=== PATIENT | female | born 1985 | race Caucasian/White ===

== ENCOUNTER 2018-12-02 11:38 | Emergency (ER) | payer SELFPAY ==
[~2018-12-02] VITALS: Ht 170.2 cm; Wt 54.5 kg
[2018-12-02] MEDS ORDERED: LORazepam 1 MG TABLET PO ONE (12:00)
[2018-12-02] MEDS ORDERED: ACETAMINOPHEN 500 MG TABLET PO ONE (12:00)
[2018-12-02 12:32] VITALS: BP 169/98
== END 2018-12-02 13:09 | disposition home or self-care (01) ==
LOC: EMS 11:39
DX: E86.0 Dehydration (principal); R51 Headache; F15.10 Other stimulant abuse, uncomplicated; F12.90 Cannabis use, unspecified, uncomplicated; F17.210 Nicotine dependence, cigarettes, uncomplicated
CPT/HCPCS: 99406

== ENCOUNTER 2018-12-02 21:06 | Emergency (ER) | payer SELFPAY ==
[~2018-12-02] VITALS: Ht 167.6 cm; Wt 70.0 kg
[2018-12-02 22:12] LABS: BASOPHILS % (AUTO) 0.3 % (0.0-2.0); EOSINOPHILS % (AUTO) 0.1 % (1.0-6.0); HEMOGLOBIN 11.6 g/dL (12.0-16.0); LYMPHOCYTES # (AUTO) 2.4 K/uL (1.0-4.8); LYMPHOCYTES % (AUTO) 23.5 % (22.0-44.0); MEAN CORPUSCULAR HEMOGLOBIN 27.4 pg (26.0-34.0); MEAN CORPUSCULAR HGB CONC 32.2 G/dL (31.0-37.0); MEAN CORPUSCULAR VOLUME 85 fL (80-100); MONOCYTES # (AUTO) 0.8 K/uL (0.1-1.0); MONOCYTES % (AUTO) 7.5 % (2.0-9.0); NEUTROPHILS % (AUTO) 68.6 % (40.0-70.0); PLATELET COUNT (AUTO) 397 K/uL (150-450); RED BLOOD CELL COUNT(AUTO) 4.24 MIL/uL (4.00-5.20); RED CELL DISTRIBUTION WIDTH 15.4 % (11.5-14.5)
[2018-12-02 22:25] LABS: ANION GAP 5 mmol/L (8-16); CALCIUM, TOTAL 8.9 mg/dL (8.8-10.5); CARBON DIOXIDE 29 mmol/L (22-29); CHLORIDE 102 mmol/L (98-107); CREATININE 0.69 mg/dL (0.60-1.30); GLOMERULAR FILTR. RATE CALC > 60 mL/min (>60); GLUCOSE,RANDOM 90 mg/dL (70-110); POTASSIUM 3.3 mmol/L (3.5-5.1); SODIUM SERUM 136 mmol/L (136-145); UREA NITROGEN, BLOOD 11 mg/dL (7-18)
[2018-12-02 22:36] LABS: ALANINE AMINOTRANSFERASE 131 U/L (12-78); ALBUMIN 3.7 g/dL (3.4-5.0); ALKALINE PHOSPHATASE 141 U/L (46-116); ASPARTATE AMINOTRANSFERASE 53 U/L (15-37); BILIRUBIN,TOTAL 0.3 mg/dL (0.1-1.0); HCG,QUANTITATIVE < 1 mIU/mL (0-6); LIPASE 397 U/L (73-393); TOTAL PROTEIN, SERUM 8.2 g/dL (6.4-8.2)
[2018-12-02 23:18] LABS: AMPHET/METH SCREEN,URINE POSITIVE (NEGATIVE); BARBITURATE SCREEN, URINE NEGATIVE (NEGATIVE); BENZODIAZEPINES SCREEN,URINE NEGATIVE (NEGATIVE); CANNABINOID SCREEN,URINE NEGATIVE (NEGATIVE); COCAINE SCREEN,URINE NEGATIVE (NEGATIVE); METHADONE SCREEN, URINE NEGATIVE (NEGATIVE); OPIATE SCREEN,URINE NEGATIVE (NEGATIVE)
[2018-12-02 23:20] LABS: PHENCYCLIDINE SCREEN,URINE NEGATIVE (NEGATIVE)
[2018-12-03] MEDS ORDERED: POTASSIUM CHLORIDE 20 MEQ ER TABLET PO ONE (00:45)
[2018-12-03 01:10] VITALS: BP 138/92
== END 2018-12-03 01:57 | disposition home or self-care (01) ==
LOC: EMS 21:07
DX: R10.32 Left lower quadrant pain (principal); R51 Headache; F15.10 Other stimulant abuse, uncomplicated; F17.210 Nicotine dependence, cigarettes, uncomplicated; F12.90 Cannabis use, unspecified, uncomplicated
CPT/HCPCS: 36415; 80053; 80307; 83690; 84702; 85025; 99283; G0480

== ENCOUNTER 2018-12-30 21:31 | Inpatient (IN) | payer MEDICARE, MEDICAID ==
[~2018-12-30] VITALS: Ht 165.1 cm; Wt 76.0 kg
[2018-12-30] MEDS ORDERED: CefTRIAXone SODIUM 1 GM/VIAL IM ONE (23:45)
[2018-12-30] MEDS ORDERED: MetroNIDAZOLE 500 MG TABLET PO ONE (23:45)
[2018-12-30] MEDS ORDERED: AZITHROMYCIN 250 MG TABLET PO ONE (23:45)
[2018-12-30 23:56] LABS: BASOPHILS % (AUTO) 0.5 % (0.0-2.0); EOSINOPHILS % (AUTO) 2.3 % (1.0-6.0); HEMATOCRIT 35.7 % (36-46); HEMOGLOBIN 11.8 g/dL (12.0-16.0); LYMPHOCYTES # (AUTO) 2.5 K/uL (1.0-4.8); LYMPHOCYTES % (AUTO) 34.5 % (22.0-44.0); MEAN CORPUSCULAR HEMOGLOBIN 27.8 pg (26.0-34.0); MEAN CORPUSCULAR HGB CONC 32.9 G/dL (31.0-37.0); MEAN CORPUSCULAR VOLUME 85 fL (80-100); MONOCYTES # (AUTO) 0.8 K/uL (0.1-1.0); MONOCYTES % (AUTO) 10.7 % (2.0-9.0); NEUTROPHILS # (AUTO) 3.8 K/uL (1.8-7.7); PLATELET COUNT (AUTO) 377 K/uL (150-450); RED BLOOD CELL COUNT(AUTO) 4.23 MIL/uL (4.00-5.20); RED CELL DISTRIBUTION WIDTH 14.9 % (11.5-14.5)
[2018-12-31 00:15] LABS: ANION GAP 7 mmol/L (8-16); CALCIUM, TOTAL 8.5 mg/dL (8.8-10.5); CARBON DIOXIDE 30 mmol/L (22-29); CHLORIDE 101 mmol/L (98-107); CREATININE 0.65 mg/dL (0.60-1.30); GLOMERULAR FILTR. RATE CALC > 60 mL/min (>60); GLUCOSE,RANDOM 98 mg/dL (70-110); POTASSIUM 3.5 mmol/L (3.5-5.1); SODIUM SERUM 138 mmol/L (136-145); UREA NITROGEN, BLOOD 14 mg/dL (7-18)
[2018-12-31 00:26] LABS: ALANINE AMINOTRANSFERASE 171 U/L (12-78); ALBUMIN 3.3 g/dL (3.4-5.0); ALKALINE PHOSPHATASE 190 U/L (46-116); ASPARTATE AMINOTRANSFERASE 70 U/L (15-37); BILIRUBIN,TOTAL 0.3 mg/dL (0.1-1.0); HCG,QUANTITATIVE < 1 mIU/mL (0-6); TOTAL PROTEIN, SERUM 7.4 g/dL (6.4-8.2)
[2018-12-31 00:27] LABS: APPEARANCE,URINE CLOUDY (CLEAR); BILIRUBIN,URINE NEGATIVE (NEGATIVE); GLUCOSE, URINE (UA) NEGATIVE (NEGATIVE); KETONES,URINE TRACE mg/dL (NEGATIVE); LEUKOCYTE ESTERASE ,URINE MODERATE (NEGATIVE); NITRATE,URINE NEGATIVE (NEGATIVE); OCCULT BLOOD,URINE LARGE (NEGATIVE); PROTEIN,URINE POS 1+ (NEGATIVE)
[2018-12-31 00:33] LABS: AMPHET/METH SCREEN,URINE POSITIVE (NEGATIVE); BARBITURATE SCREEN, URINE NEGATIVE (NEGATIVE); BENZODIAZEPINES SCREEN,URINE NEGATIVE (NEGATIVE); CANNABINOID SCREEN,URINE NEGATIVE (NEGATIVE); COCAINE SCREEN,URINE NEGATIVE (NEGATIVE); METHADONE SCREEN, URINE NEGATIVE (NEGATIVE); OPIATE SCREEN,URINE NEGATIVE (NEGATIVE); PHENCYCLIDINE SCREEN,URINE NEGATIVE (NEGATIVE)
[2018-12-31 00:36] LABS: RBC,URINE >100 /HPF (0-2)
[2018-12-31 00:37] LABS: SQUAMOUS EPITHELIAL CELL,UR Few /LPF (None Seen)
[2018-12-31 00:38] LABS: BACTERIA,URINE Few /HPF (None Seen); CALCIUM OXALATE CRYSTALS,UR Few /LPF (None Seen)
[2018-12-31 08:00] VITALS: BP 148/101
[2018-12-31 09:30] VITALS: BP 144/75
[2018-12-31] MEDS: ESCITALOPRAM OXALATE 10 MG TABLET PO SCH (11:35)
[2018-12-31] MEDS ORDERED: MAGNESIUM HYDROXIDE SUSPENSION 30 ML UDCUP PO PRN (13:45)
[2018-12-31] MEDS ORDERED: ACETAMINOPHEN 325 MG TABLET PO PRN (13:45)
[2018-12-31] MEDS ORDERED: IBUPROFEN 400 MG TABLET PO PRN (13:45)
[2018-12-31] MEDS ORDERED: ALBUTEROL SULFATE HFA 90 MCG/PUFF 8 GM INHALER IH PRN (13:45)
[2018-12-31] MEDS ORDERED: MAG HYDROX/AL HYDROX/SIMETH ES 30 ML SUSPENSION UDCUP PO PRN (13:45)
[2018-12-31] MEDS ORDERED: ONDANSETRON HCL 4 MG TABLET PO PRN (13:45)
[2018-12-31] MEDS ORDERED: GuaiFENesin/D-METHORPHAN [SUGAR-FREE] 200-20MG/10 ML SYRUP UDCUP PO PRN (13:45)
[2018-12-31] MEDS ORDERED: CloNIDine HCL 0.1 MG TABLET PO PRN (13:45)
[2018-12-31] MEDS ORDERED: LOPERAMIDE HCL 2 MG CAPSULE PO PRN (13:45)
[2018-12-31] MEDS ORDERED: PETROLATUM,WHITE 28 GM JELLY TP PRN (13:45)
[2018-12-31] MEDS ORDERED: DOCUSATE SODIUM 100 MG CAPSULE PO PRN (13:45)
[2018-12-31 17:43] VITALS: BP 140/86
[2019-01-01 05:44] VITALS: BP 145/94
[2019-01-01] MEDS: ESCITALOPRAM OXALATE 10 MG TABLET PO SCH (08:06)
[2019-01-01 08:10] VITALS: BP_SYST 135; BP_SYST 157; BP_DIAS 157; BP_DIAS 86
[2019-01-01 16:00] VITALS: BP 154/98
[2019-01-01] MEDS: LORazepam 1 MG TABLET PO PRN (16:03)
[2019-01-01] MEDS: HALOPERIDOL 5 MG TABLET PO PRN (16:03)
[2019-01-01] MEDS: QUEtiapine FUMARATE 200 MG TABLET PO SCH (21:26)
[2019-01-02] MEDS: ESCITALOPRAM OXALATE 10 MG TABLET PO SCH (08:07)
[2019-01-02 09:50] VITALS: BP 149/92
[2019-01-02] MEDS: DOXYCYCLINE HYCLATE 100 MG CAPSULE PO SCH (16:31)
[2019-01-02 17:02] VITALS: BP 145/102
[2019-01-02] MEDS: QUEtiapine FUMARATE 200 MG TABLET PO SCH (20:14)
[2019-01-03 06:50] VITALS: BP 146/106
[2019-01-03] MEDS: DOXYCYCLINE HYCLATE 100 MG CAPSULE PO SCH ×2 (07:50→16:28)
[2019-01-03] MEDS: LORazepam 1 MG TABLET PO PRN (07:50)
[2019-01-03] MEDS: ESCITALOPRAM OXALATE 10 MG TABLET PO SCH (07:51)
[2019-01-03 08:30] VITALS: BP 166/87
[2019-01-03 16:00] VITALS: BP 149/97
[2019-01-03] MEDS: QUEtiapine FUMARATE 200 MG TABLET PO SCH (20:01)
[2019-01-04] MEDS: DOXYCYCLINE HYCLATE 100 MG CAPSULE PO SCH ×2 (07:47→16:13)
[2019-01-04] MEDS: ESCITALOPRAM OXALATE 10 MG TABLET PO SCH (07:47)
[2019-01-04 08:15] VITALS: BP 139/85
[2019-01-04 18:19] VITALS: BP 143/97
[2019-01-04] MEDS: ZOLPIDEM TARTRATE 10 MG TABLET PO PRN (19:16)
[2019-01-04] MEDS: QUEtiapine FUMARATE 200 MG TABLET PO SCH (20:52)
[2019-01-05 06:37] VITALS: BP 136/88
[2019-01-05] MEDS: ESCITALOPRAM OXALATE 10 MG TABLET PO SCH (08:35)
[2019-01-05] MEDS: DOXYCYCLINE HYCLATE 100 MG CAPSULE PO SCH ×2 (08:35→16:50)
[2019-01-05] MEDS: LORazepam 1 MG TABLET PO PRN (08:35)
[2019-01-05 09:52] VITALS: BP 116/87
[2019-01-05 17:00] VITALS: BP 147/94
[2019-01-05] MEDS ORDERED: INFLUENZA VIRUS VACCINE QVS 2019-20 (3YR+)/PF 60 MCG/0.5 ML SYRINGE IM ONE (19:15)
[2019-01-05] MEDS: QUEtiapine FUMARATE 200 MG TABLET PO SCH (20:45)
[2019-01-05] MEDS: ZOLPIDEM TARTRATE 10 MG TABLET PO PRN (20:45)
[2019-01-06] MEDS: DOXYCYCLINE HYCLATE 100 MG CAPSULE PO SCH ×2 (07:59→16:01)
[2019-01-06] MEDS: ESCITALOPRAM OXALATE 10 MG TABLET PO SCH (08:00)
[2019-01-06 11:22] VITALS: BP 130/76
[2019-01-06] MEDS: LORazepam 1 MG TABLET PO PRN (16:27)
[2019-01-06] MEDS: NICOTINE 14 MG/24 HOUR PATCH TD PRN (16:28)
[2019-01-06] MEDS: QUEtiapine FUMARATE 200 MG TABLET PO SCH (20:32)
[2019-01-06] MEDS: ZOLPIDEM TARTRATE 10 MG TABLET PO PRN (20:32)
[2019-01-06 20:45] VITALS: BP 138/74
[2019-01-07] MEDS: DOXYCYCLINE HYCLATE 100 MG CAPSULE PO SCH ×3 (07:44→16:31)
[2019-01-07] MEDS: ESCITALOPRAM OXALATE 10 MG TABLET PO SCH (07:45)
[2019-01-07 08:33] VITALS: BP 114/77
[2019-01-07] MEDS: LORazepam 1 MG TABLET PO PRN ×2 (12:21→16:31)
[2019-01-07] MEDS: HALOPERIDOL 5 MG TABLET PO PRN (15:45)
[2019-01-07] MEDS: NICOTINE 14 MG/24 HOUR PATCH TD PRN (17:11)
[2019-01-07 17:19] VITALS: BP 145/78
[2019-01-07] MEDS: QUEtiapine FUMARATE 200 MG TABLET PO SCH (20:14)
[2019-01-07] MEDS: ZOLPIDEM TARTRATE 10 MG TABLET PO PRN (20:14)
[2019-01-08 04:41] VITALS: BP 128/74
[2019-01-08 07:49] LABS: ALANINE AMINOTRANSFERASE 289 U/L (12-78); ALKALINE PHOSPHATASE 147 U/L (46-116); ANION GAP 7 mmol/L (8-16); ASPARTATE AMINOTRANSFERASE 143 U/L (15-37); BILIRUBIN,TOTAL 0.1 mg/dL (0.1-1.0); CALCIUM, TOTAL 8.5 mg/dL (8.8-10.5); CARBON DIOXIDE 27 mmol/L (22-29); CHLORIDE 104 mmol/L (98-107); CREATININE 0.65 mg/dL (0.60-1.30); GLOMERULAR FILTR. RATE CALC > 60 mL/min (>60); GLUCOSE,RANDOM 85 mg/dL (70-110); POTASSIUM 4.2 mmol/L (3.5-5.1); SODIUM SERUM 138 mmol/L (136-145); TOTAL PROTEIN, SERUM 6.7 g/dL (6.4-8.2); UREA NITROGEN, BLOOD 18 mg/dL (7-18)
[2019-01-08 08:00] VITALS: BP 127/92
[2019-01-08] MEDS: LORazepam 1 MG TABLET PO PRN (08:03)
[2019-01-08] MEDS: DOXYCYCLINE HYCLATE 100 MG CAPSULE PO SCH ×2 (08:03→16:37)
[2019-01-08] MEDS: HALOPERIDOL 5 MG TABLET PO PRN (08:03)
[2019-01-08] MEDS: ESCITALOPRAM OXALATE 10 MG TABLET PO SCH (08:04)
[2019-01-08] MEDS: NICOTINE 14 MG/24 HOUR PATCH TD PRN (10:15)
[2019-01-08 19:10] VITALS: BP 117/80
[2019-01-08] MEDS: QUEtiapine FUMARATE 200 MG TABLET PO SCH (20:08)
[2019-01-09] MEDS: ESCITALOPRAM OXALATE 10 MG TABLET PO SCH (08:37)
[2019-01-09] MEDS: HALOPERIDOL 5 MG TABLET PO PRN (09:57)
[2019-01-09] MEDS: NICOTINE 14 MG/24 HOUR PATCH TD PRN (10:17)
[2019-01-09] MEDS: LORazepam 1 MG TABLET PO PRN ×2 (11:55→17:56)
[2019-01-09 12:02] VITALS: BP 122/77
[2019-01-09 16:00] VITALS: BP 134/86
[2019-01-09 17:50] VITALS: BP 129/73
[2019-01-09] MEDS: QUEtiapine FUMARATE 200 MG TABLET PO SCH (20:19)
[2019-01-10] MEDS: ESCITALOPRAM OXALATE 10 MG TABLET PO SCH (08:00)
[2019-01-10] MEDS: LORazepam 1 MG TABLET PO PRN ×2 (08:02→15:04)
[2019-01-10 09:58] VITALS: BP 160/81
[2019-01-10] MEDS: HALOPERIDOL 5 MG TABLET PO PRN (11:46)
[2019-01-10] MEDS: QUEtiapine FUMARATE 200 MG TABLET PO SCH (19:48)
[2019-01-10 21:49] VITALS: BP 130/84
[2019-01-11] MEDS: ESCITALOPRAM OXALATE 10 MG TABLET PO SCH (07:50)
[2019-01-11 08:58] VITALS: BP 126/80
[2019-01-11] MEDS: LORazepam 1 MG TABLET PO PRN ×2 (10:20→15:00)
[2019-01-11] MEDS: NICOTINE 14 MG/24 HOUR PATCH TD PRN (10:21)
[2019-01-11] MEDS: HALOPERIDOL 5 MG TABLET PO PRN (13:08)
[2019-01-11 19:39] VITALS: BP 150/83
[2019-01-11] MEDS: QUEtiapine FUMARATE 200 MG TABLET PO SCH (20:05)
[2019-01-12] MEDS: ESCITALOPRAM OXALATE 10 MG TABLET PO SCH (07:48)
[2019-01-12] MEDS: LORazepam 1 MG TABLET PO PRN (08:34)
[2019-01-12 08:56] VITALS: BP 121/84
[2019-01-12] MEDS ORDERED: QUET200T29 PO (09:50)
[2019-01-12] MEDS ORDERED: ESCI10TA54 PO (09:50)
== END 2019-01-12 11:30 | disposition home or self-care (01) | DRG 885 ==
LOC: EMS 21:32 → 3EX 12-31 06:24
DX: F25.1 Schizoaffective disorder, depressive type (principal); R45.851 Suicidal ideations; D64.9 Anemia, unspecified; F10.10 Alcohol abuse, uncomplicated; F15.10 Other stimulant abuse, uncomplicated; R00.0 Tachycardia, unspecified; R03.0 Elevated blood-pressure reading, without diagnosis of hypertension; R74.0 Nonspecific elevation of levels of transaminase and lactic acid dehydrogenase [LDH]; R30.0 Dysuria; G44.209 Tension-type headache, unspecified, not intractable; A74.9 Chlamydial infection, unspecified; R31.9 Hematuria, unspecified; F17.210 Nicotine dependence, cigarettes, uncomplicated; K21.9 Gastro-esophageal reflux disease without esophagitis; Z59.0 Homelessness; Z79.899 Other long term (current) drug therapy; Z23 Encounter for immunization; Z71.41 Alcohol abuse counseling and surveillance of alcoholic; Z71.51 Drug abuse counseling and surveillance of drug abuser; Z71.6 Tobacco abuse counseling
CPT/HCPCS: 80074; 84439; 87086; 87491; 87591; 90686; 96372; G0378; G0480; J0696